=== PATIENT | male | born 1980 | race Caucasian/White ===

== ENCOUNTER 2018-10-05 09:19 | Observation (INO) | payer OTHER ==
[~2018-10-05] VITALS: Ht 210.8 cm; Wt 104.3 kg
[~2018-10-05 09:19] MED LIST: ALBU90OI61 INH; BUSP10 PO; CEPH500 PO; CLAR500 PO; CODACE30 PO; CRUTCH3 USE; Cyclobenzaprine5 MG PO; HYDACE5 PO; HYDACE5325 PO; HYDPAM25 PO; IBUP600 PO; IBUP800 PO; METR500 PO; NAPR500 PO; Norco 7.5-3251 EACH PO; OMEP20ER PO; SPACER IH; SULTRIDS PO
[2018-10-05 10:41] LABS: BASOPHILS ABSOLUTE AUTO 0.04 K/mm3 (0.00-0.23); BASOPHILS PERCENT AUTO 0 % (0-2); EOSINOPHILS PERCENT AUTO 1 % (0-6); Hematocrit 44.9 % (37.0-53.0); Hemoglobin 15.1 g/dL (13.5-17.5); IMMATURE GRAN ABSOLUTE AUTO 0.12 K/mm3 (0.00-0.10); IMMATURE GRAN PERCENT AUTO 1 % (0-1); LYMPHOCYTES ABSOLUTE AUTO 2.51 K/mm3 (0.84-5.20); LYMPHOCYTES PERCENT AUTO 14 % (21-46); MONOCYTES ABSOLUTE AUTO 1.89 K/mm3 (0.16-1.47); MONOCYTES PERCENT AUTO 11 % (4-13); Mean Corpuscular HGB 32.9 pg (26.0-34.0); Mean Corpuscular HGB Conc 33.6 g/dL (31.5-36.5); Mean Corpuscular Volume 98 fL (80-100); Mean Platelet Volume 9.4 fL (9.1-12.4); NEUTROPHILS ABSOLUTE AUTO 13.42 K/mm3 (1.96-9.15); NEUTROPHILS PERCENT AUTO 74 % (41-73); Platelet Count 265 K/mm3 (150-400); RDW Coefficient Variation 12.5 % (11.7-14.2); RDW Standard Deviation 45.1 fL (35.1-46.3); Red Blood Cell Count 4.59 M/mm3 (4.30-5.90); White Blood Cell Count 18.08 K/mm3 (4.00-11.30)
[2018-10-05 11:04] LABS: Alanine Aminotransfer (ALT/SGP 44 U/L (12-78); Albumin, Blood 3.7 g/dL (3.4-5.0); Albumin/Globulin Ratio 0.9 (0.8-1.8); Alk Phos 101 U/L (50-136); Anion Gap 6 mmol/L (6-16); Aspartate Aminotrans (AST/SGOT 21 U/L (12-37); Bilirubin, Total 0.5 mg/dL (0.1-1.0); Blood Urea Nitrogen 17 mg/dL (8-24); Bun/Creatinine Ratio 13.7 (12.0-20.0); CO2, Blood 26 mmol/L (21-32); Calcium, Blood 9.4 mg/dL (8.5-10.1); Chloride, Blood 109 mmol/L (98-108); Creatinine, Blood 1.24 mg/dL (0.60-1.20); Glomerular Filtration Rate >60 (60-); Glucose, Blood 99 mg/dL (70-99); Sodium, Blood 141 mmol/L (136-145); Total Protein, Blood 7.7 g/dL (6.4-8.2)
[2018-10-05] MEDS ORDERED: Tylenol325 MG PO (12:23)
[2018-10-05] MEDS ORDERED: ADVIL LIQUI-GE200 MG PO (12:24)
[2018-10-05] MEDS ORDERED: BENADRYL25 MG PO (12:24)
--- NOTE | 2018-10-05 22:09 | NUR ---
INCREASED DRAINAGE LARGE AMOUNT OF DRAINAGE NOTED UPON PT RETURNING FROM BATHROOM. DRAINAGE PURULENT FOUL YELLOW/SS. GOWN + LINENS CHANGED. PT REPORTED FEELING NAUSEATED UPON SEEING DRAINAGE. ZOFRAN ADMINISTERED + EMESIS BAG GIVEN. ABD PAD APPLIED TO COCCYX. THIS NURSE NOTIFED BY OR THAT PT WILL BE BROUGHT BACK TO OR SOON. PT MAINTAINED NPO. PT RELAXING IN BED NOW. CALL LIGHT IN REACH.
--- NOTE | 2018-10-05 23:00 | NUR ---
10/05/18 2300 Ignacia Gupta PT ON SCHEDULED ANTIBIOTICS
--- NOTE | 2018-10-06 00:52 | NUR ---
0010 PT BACK TO ROOM. TRANSFERED TO BED SBA. GAUZE TO COCCYX CHANGED WITH PREVENA DRAIN NOTED. PT DENIES PAIN, NAUSEA DECREASED POST MEDICATIONS. RESTING IN BED NOW. TOLERATING FLUIDS + SMALL BITES CRACKERS. PO ABX GIVEN. CALL LIGHT IN REACH.
--- NOTE | 2018-10-06 07:44 | NUR ---
SHIFT SUMMARY PT POD#1 BRIDGER RECTAL ABSCESS I+D WITH ALINE DRAIN PLACEMENT. AAOX4. DISCOMFORT AT TOLERABLE LEVEL POST OP. NO NAUSEA/EMESIS SINCE RETURNING TO FLOOR. LARGE AMOUNT SS DRAINAGE OUT OF SITE, GAUZE CHANGED X2 THIS AM WITH LINEN CHANGE X1. PT RESTED WELL THIS AM POST OP. INDEPENDENT IN ROOM. SL. TOLERATING PO FLUIDS WELL. PT RESTING AT TIME OF REPORT TO DAY SHIFT RN, QIAN WITH CALL LIGHT IN REACH.
[2018-10-06] MEDS ORDERED: Norco 5-325 Ta1 EACH PO (14:12)
[2018-10-06] MEDS ORDERED: METR500 PO (14:13)
--- NOTE | 2018-10-06 14:47 | NUR ---
DISCHARGE PT EDUCATED ON AND RECEIVED PRINTED DC INSTRUCTIONS AND VERB AN UNDERSTANDING. PT GIVEN HARD RX FOR NORCO AND ABX. IVS DC'D. GAUZE AND BRIDGER BOTTLE GIVEN TO PT. PT SHOWERING AT THIS TIME WHILE WAITING FOR RIDE HOME. PT GATHERED ALL PERSONAL BELONGINGS.
== END 2018-10-06 15:15 | disposition home or self-care (01) ==
LOC: ER 09:19 → SURS 09:20
PROVIDERS: Emergency Medicine; ADMIT Surgery
PROC: 0D9P0ZZ Drainage of Rectum, Open Approach (ICD-10-PCS; principal; 2018-10-05 22:00)
DX: K61.1 Rectal abscess (principal); F17.210 Nicotine dependence, cigarettes, uncomplicated; D72.829 Elevated white blood cell count, unspecified; E66.9 Obesity, unspecified; Z79.2 Long term (current) use of antibiotics; Z79.899 Other long term (current) drug therapy; Z88.0 Allergy status to penicillin; Z88.8 Allergy status to other drugs, medicaments and biological substances; Z68.23 Body mass index [BMI] 23.0-23.9, adult
CPT/HCPCS: 36415; 72193; 80053; 85025; 96361; 96365-59; 96375; 96375-59; 96376; 99284-25; A9270-GY; G0378; J0744; J1100; J1170; J1885; J2250; J2270; J2405; J2704; J3010; J7030; J7120; Q9967

== ENCOUNTER → 2019-10-13 | Outpatient (CLI) | payer OTHER ==
[~2019-10-13] MED LIST changes: +ADVIL LIQUI-GE200 MG PO; +BENADRYL25 MG PO; +Norco 5-325 Ta1 EACH PO; +Tylenol325 MG PO
[2019-10-13 17:45] LABS: BASOPHILS ABSOLUTE AUTO 0.09 K/mm3 (0.00-0.23); BASOPHILS PERCENT AUTO 1 % (0-2); EOSINOPHILS ABSOLUTE AUTO 0.07 K/mm3 (0.00-0.68); EOSINOPHILS PERCENT AUTO 1 % (0-6); Hematocrit 44.1 % (37.0-53.0); Hemoglobin 15.2 g/dL (13.5-17.5); IMMATURE GRAN ABSOLUTE AUTO 0.09 K/mm3 (0.00-0.10); IMMATURE GRAN PERCENT AUTO 1 % (0-1); LYMPHOCYTES ABSOLUTE AUTO 3.05 K/mm3 (0.84-5.20); LYMPHOCYTES PERCENT AUTO 21 % (21-46); MONOCYTES ABSOLUTE AUTO 1.46 K/mm3 (0.16-1.47); MONOCYTES PERCENT AUTO 10 % (4-13); Mean Corpuscular HGB Conc 34.5 g/dL (31.5-36.5); Mean Corpuscular Volume 96 fL (80-100); Mean Platelet Volume 9.4 fL (9.1-12.4); NEUTROPHILS ABSOLUTE AUTO 9.62 K/mm3 (1.96-9.15); NEUTROPHILS PERCENT AUTO 67 % (41-73); Platelet Count 328 K/mm3 (150-400); RDW Coefficient Variation 13.2 % (11.7-14.2); RDW Standard Deviation 46.6 fL (35.1-46.3); Red Blood Cell Count 4.61 M/mm3 (4.30-5.90); White Blood Cell Count 14.38 K/mm3 (4.00-11.30)
[2019-10-13 18:03] LABS: Albumin, Blood 4.2 g/dL (3.4-5.0); Bilirubin, Total 0.3 mg/dL (0.1-1.0); Bun/Creatinine Ratio 14.3 (12.0-20.0); Calcium, Blood 9.5 mg/dL (8.5-10.1); Creatinine, Blood 1.4 mg/dL (0.60-1.20); Globulin, Blood 4.2 g/dL (2.2-4.0); Potassium, Blood 3.9 mmol/L (3.5-5.5); Total Protein, Blood 8.4 g/dL (6.4-8.2)
== END ==
LOC: LAB SHORT 17:38 → LAB EV 17:38
PROVIDERS: Nurse Practitioner
DX: R00.0 Tachycardia, unspecified (principal); L02.92 Furuncle, unspecified
CPT/HCPCS: 80053; 85025; 87070; 87075; 87147; 87205

== ENCOUNTER 2023-01-11 02:33 | Emergency (ER) | payer OTHER ==
[~2023-01-11] VITALS: Ht 180.3 cm; Wt 111.6 kg
[~2023-01-11 02:33] MED LIST changes: +Cleocin HCl150 MG PO
[2023-01-11] MEDS ORDERED: CYCL10 PO (03:19)
[2023-01-11 03:29] VITALS: BP 178/128
== END 2023-01-11 03:40 | disposition home or self-care (01) ==
LOC: ER 02:33
DX: M25.511 Pain in right shoulder (principal); M54.32 Sciatica, left side; I10 Essential (primary) hypertension; F17.220 Nicotine dependence, chewing tobacco, uncomplicated; F17.290 Nicotine dependence, other tobacco product, uncomplicated
CPT/HCPCS: 73030; 99283-25; A9270; J1100

== ENCOUNTER 2024-02-09 19:40 | Inpatient (IN) | payer OTHER ==
[~2024-02-09] VITALS: Ht 180.3 cm; Wt 91.9 kg
[~2024-02-09 19:40] MED LIST changes: +CYCL10 PO
[2024-02-09 20:17] LABS: BASOPHILS PERCENT AUTO 1 % (0-2); EOSINOPHILS ABSOLUTE AUTO 0.16 K/mm3 (0.00-0.68); EOSINOPHILS PERCENT AUTO 1 % (0-6); Hemoglobin 14.3 g/dL (13.5-17.5); IMMATURE GRAN ABSOLUTE AUTO 0.25 K/mm3 (0.00-0.10); IMMATURE GRAN PERCENT AUTO 1 % (0-1); LYMPHOCYTES ABSOLUTE AUTO 1.91 K/mm3 (0.84-5.20); LYMPHOCYTES PERCENT AUTO 9 % (21-46); MONOCYTES ABSOLUTE AUTO 2.34 K/mm3 (0.16-1.47); MONOCYTES PERCENT AUTO 12 % (4-13); Mean Corpuscular HGB 31.6 pg (26.0-34.0); Mean Corpuscular HGB Conc 33.3 g/dL (31.5-36.5); Mean Corpuscular Volume 95 fL (80-100); Mean Platelet Volume 9.1 fL (9.1-12.4); NEUTROPHILS ABSOLUTE AUTO 15.59 K/mm3 (1.96-9.15); NEUTROPHILS PERCENT AUTO 77 % (41-73); Platelet Count 318 K/mm3 (150-400); RDW Coefficient Variation 13.5 % (11.7-14.2); RDW Standard Deviation 48.1 fL (35.1-46.3); Red Blood Cell Count 4.53 M/mm3 (4.30-5.90); White Blood Cell Count 20.35 K/mm3 (4.00-11.30)
[2024-02-09 20:40] LABS: Albumin, Blood 2.6 g/dL (3.4-5.0); Albumin/Globulin Ratio 0.5 (0.8-1.8); Bilirubin, Total 0.3 mg/dL (0.1-1.0); Bun/Creatinine Ratio 16.2 (12.0-20.0); C-REACTIVE PROTEIN, EXT RANGE 14.6 mg/dL (0.000-0.300); Creatinine, Blood 0.93 mg/dL (0.60-1.20); Globulin, Blood 5.2 g/dL (2.2-4.0); Potassium, Blood 4.4 mmol/L (3.5-5.5); Total Protein, Blood 7.8 g/dL (6.4-8.2)
[2024-02-09] MEDS ORDERED: Vancomycin HCL 1,500 MG in NS 250 ML IV ONE (23:25)
[2024-02-09] MEDS ORDERED: NS 1,000 ML IV SCH (23:25)
[2024-02-09] MEDS ORDERED: Cefepime HCl 2,000 MG in NS 100 ML IV ONE (23:30)
[2024-02-09] MEDS ORDERED: Vancomycin HCL 2,000 MG in NS 520 ML IV ONE (23:30)
[2024-02-10] VITALS (24 sets, daily range): BP systolic 106–143; BP diastolic 75–111
[2024-02-10] MEDS ORDERED: Ketorolac Tromethamine 30mg Vial IV ONE (00:15)
[2024-02-10] MEDS ORDERED: FLU VACC TS2024-25(6MOS UP)/PF 45 MCG/0.5 ML SYRINGE IM SCH ×2 (03:15→19:15)
[2024-02-10] MEDS ORDERED: Acetaminophen 325 MG TABLET PO PRN ×2 (03:20→19:20)
[2024-02-10] MEDS ORDERED: NS 1,000 ML IV SCH ×2 (03:25→04:00)
[2024-02-10] MEDS ORDERED: ChlordiazePOXIDE 25 MG Cap PO PRN ×2 (03:40)
[2024-02-10] MEDS ORDERED: LORazepam 2 MG/ML 1ML Injection IV PRN ×2 (03:40)
[2024-02-10 04:18] LABS: BASOPHILS ABSOLUTE AUTO 0.12 K/mm3 (0.00-0.23); BASOPHILS PERCENT AUTO 1 % (0-2); EOSINOPHILS ABSOLUTE AUTO 0.13 K/mm3 (0.00-0.68); EOSINOPHILS PERCENT AUTO 1 % (0-6); Hematocrit 38.4 % (37.0-53.0); Hemoglobin 12.7 g/dL (13.5-17.5); IMMATURE GRAN ABSOLUTE AUTO 0.46 K/mm3 (0.00-0.10); IMMATURE GRAN PERCENT AUTO 2 % (0-1); LYMPHOCYTES PERCENT AUTO 9 % (21-46); MONOCYTES ABSOLUTE AUTO 2.37 K/mm3 (0.16-1.47); MONOCYTES PERCENT AUTO 12 % (4-13); Mean Corpuscular HGB 32.1 pg (26.0-34.0); Mean Corpuscular HGB Conc 33.1 g/dL (31.5-36.5); Mean Corpuscular Volume 97 fL (80-100); Mean Platelet Volume 9.6 fL (9.1-12.4); NEUTROPHILS ABSOLUTE AUTO 15.55 K/mm3 (1.96-9.15); NEUTROPHILS PERCENT AUTO 76 % (41-73); Platelet Count 274 K/mm3 (150-400); RDW Coefficient Variation 13.6 % (11.7-14.2); RDW Standard Deviation 49.1 fL (35.1-46.3); Red Blood Cell Count 3.96 M/mm3 (4.30-5.90); White Blood Cell Count 20.43 K/mm3 (4.00-11.30)
[2024-02-10 04:46] LABS: Albumin, Blood 2.2 g/dL (3.4-5.0); Albumin/Globulin Ratio 0.5 (0.8-1.8); Bilirubin, Total 0.5 mg/dL (0.1-1.0); Bun/Creatinine Ratio 14.6 (12.0-20.0); Calcium, Blood 8.7 mg/dL (8.5-10.1); Creatinine, Blood 1.03 mg/dL (0.60-1.20); Globulin, Blood 4.3 g/dL (2.2-4.0); Potassium, Blood 4.3 mmol/L (3.5-5.5); Total Protein, Blood 6.5 g/dL (6.4-8.2)
--- NOTE | 2024-02-10 06:38 | NUR ---
NEW ADMIT/SHIFT SUMMARY. PATIENT ARRIVED TO ROOM 351 WITH 1P TRANSFER VIA GURNEY. PATIENT ABLE TO HOP FROM [facility] TO HOSPITAL BED. PATIENT ARRIVED TO ROOM WITH 2 PERSONAL BELONGINGS BAGS AND A BLACK DUFFLE BAG. PATIENT ORIENTED TO ROOM. PATIENT IS A&OX4. PATIENT IS PLEASANT AND COOPERATIVE WITH CARE. PATIENT IS TO HAVE A CONSULT WITH SURGICAL TODAY FOR CELLULITIS AND ABCESS TO LEFT KNEE. PATIENT IS NPO. BED IS LOCKED IN THE LOWEST POSITION.
--- NOTE | 2024-02-10 08:04 | NUR ---
DR. LUCAS IS NOT RESTAURANT SUPERVISOR TODAY. NOTIFIED DR. MODI. ALSO REPORTED PT HAS NICOTINE PRODUCTS AND VAPE PEN AND IS REQUESTING A NICOTINE PATCH. DR. MODI REQUESTED TO PLACE ORDER FOR NICOTINE PATCH 21 MG PER DAY. PLACED ORDER. PT DUFFEL BAG CONTAINING NICOTINE PRODUCTS WAS LOCKED IN CLOSET IN THE ROOM.
[2024-02-10] MEDS ORDERED: Nicotine 21 MG PATCH TOP SCH (09:00)
[2024-02-10] MEDS ORDERED: Folic Acid 1 MG TAB PO SCH (09:00)
[2024-02-10] MEDS ORDERED: Lactobacil 2-S.Thermo-Bifido 1 1 Cap PO SCH (09:00)
[2024-02-10] MEDS ORDERED: Thiamine HCl 100 MG Tab PO SCH (09:00)
[2024-02-10] MEDS ORDERED: Cefepime HCl 2,000 MG in NS 100 ML IV SCH (10:00)
[2024-02-10 15:12] LABS: U Amphetamine Screen DETECTED; U Barbituate Screen Not Detected; U Benzodiazapine Screen Not Detected; U Buprenorphine Screen Not Detected; U Cannabinoids Screen DETECTED; U Cocaine Screen Not Detected; U Methadone Screen Not Detected; U Methamphetamine Screen DETECTED; U Opiates Screen Not Detected; U Oxycodone Screen Not Detected; U Phencyclidine Screen Not Detected
[2024-02-10] MEDS ORDERED: Lactated Ringer's 1,000 ML IV SCH (16:10)
[2024-02-10] MEDS ORDERED: HydrALAZINE HCl 20 MG / ML 1ML Vial ONE (16:37)
[2024-02-10] MEDS ORDERED: FentaNYL Citrate 50 MCG/ML 2 ML Injection ONE ×3 (16:38→18:53)
[2024-02-10] MEDS ORDERED: Dexamethasone Sod Phos 10 MG/ML 1ML VIAL ONE (16:38)
[2024-02-10] MEDS ORDERED: propofoL 20 ML IV ONE (16:38)
[2024-02-10] MEDS ORDERED: Ondansetron HCl 2 MG / ML 2ML Vial ONE (16:38)
[2024-02-10] MEDS ORDERED: Lidocaine HCl 2% 20 ML MDV ONE (16:38)
[2024-02-10] MEDS ORDERED: Vancomycin HCL 1,750 MG in NS 500 ML IV SCH (17:00)
--- NOTE | 2024-02-10 17:13 | NUR ---
PT HAS 18G IV TO LEFT UPPER ARM THAT FLUSHES WELL AND FLOWS TO GRAVITY.
--- NOTE | 2024-02-10 17:30 | NUR ---
PT RECENTLY HERE FROM [facility] BY [facility] WITH OTHER STAFF. Patient confirms NPO status and agrees with scheduled surgery. Pre-Op teaching done. Pt verbalizes understanding. Lungs clear T/O to Auscultation. History, Chart, Medications and Allergies reviewed before start of procedure.
--- NOTE | 2024-02-10 17:34 | NUR ---
SHIFT SUMMARY PT A&OX4. PT ADMITTED DUE TO SEPSIS DUE TO CELLULITIS OF L LEG. PT REPORTS PAIN ON L LEG, PT PAIN MANAGED PER EMAR. PT ON ROOM AIR. PT USES WALKER, AND IS INDEPENDENT IN ROOM. FALL PERCAUTIONS IN PLACE. PT WAS NPO THROUGH SHIFT. PT RECEIVED IV FLUIDS AND ANTIBIOTICS THROUGH SHIFT FOR SEPSIS PROTOCOL. PT SHOWERED THIS AM. PT CALLS APPROPRIATELY. PT HAS ITEMS LOCKED UP IN CLOSET. PT CURRENTLY IN OR. PT ON ROOM AIR THROUGH SHIFT. VITAL SIGNS STABLE, HR WAS TACHY THROUGH SHIFT. NO SIGNS OF WITHDRAWL THROUGH SHIFT.
[2024-02-10] MEDS ORDERED: HYDROmorphone HCl/Pf 1MG SYR ONE ×2 (17:58→18:47)
[2024-02-10] MEDS ORDERED: Bisacodyl 10 MG Supp PR PRN (19:10)
[2024-02-10] MEDS ORDERED: OxyCODONE HCL 5 MG TAB PO PRN (19:10)
[2024-02-10] MEDS ORDERED: NS KCl 20mEq 1,000 ML IV SCH (19:10)
[2024-02-10] MEDS ORDERED: Magnesium Hydroxide Conc 10 ML UDC PO PRN (19:15)
[2024-02-10] MEDS ORDERED: Metoclopramide HCl 10 MG Tab PO PRN (19:15)
[2024-02-10] MEDS ORDERED: HYDROmorphone HCl/Pf 1MG SYR IV PRN (19:15)
[2024-02-10] MEDS ORDERED: Ondansetron HCl 2 MG / ML 2ML Vial IV PRN (19:20)
[2024-02-10] MEDS ORDERED: Ondansetron 4 MG TAB PO PRN (19:20)
[2024-02-10] MEDS ORDERED: Naloxone HCl 0.4MG / ML 1ML Vial IV PRN (19:20)
--- NOTE | 2024-02-10 19:30 | NUR ---
RETURNED FROM SURGERY. PATIENT BACK TO ROOM AT 1930 FROM PACU. PATIENT IS DROWSY. PATIENT TRANSFERED FROM [facility] TO [facility] BED WITH SLIDE SHEET AND 5 PERSON TRANSFER D/T PATIENT BEING DROWSY AND SUPPORT FOR PATIENTS LEG. PATIENT DENIES PAIN AT THIS TIME. POST OP-VITALS STARTED.
--- NOTE | 2024-02-10 19:55 | NUR ---
SOLAR DESIGNER NUMBER FOR CALLED AND LEFT A MESSAGE IN REGARDS TO NEW ORDERS FOR PRE-OP AND POST-OP SURGICAL PROCEDURE. PATIENT HAS UNDERGONE SURGERY AND IS BACK TO ROOM PRIOR TO NEW ORDERS BEING PLACED-CALLING FOR CLARIFICATION. SOLAR DESIGNER LINE RIDER TO GET MESSAGE OVER TO , PHONE NUMBER TO MEDICAL FLOOR LEFT FOR RETURN CALL.
[2024-02-10] MEDS ORDERED: Ketorolac Tromethamine 30mg Vial IV PRN (20:50)
[2024-02-10] MEDS ORDERED: Naproxen 500 MG Tab PO PRN (20:50)
[2024-02-10] MEDS ORDERED: Docusate Sodium 100 MG Cap PO SCH (21:00)
[2024-02-11 02:33] VITALS: BP 155/130
[2024-02-11 02:41] VITALS: BP 140/95
--- NOTE | 2024-02-11 04:48 | NUR ---
SHIFT SUMMARY. PATIENT IS A&OX4. PATIENT CALLS APPROPRIATELY AND IS ABLE TO MAKE NEEDS KNOWN. PATIENT C/O PAIN X1-MEDICATED PER ORDERS. PATIENT HAD I&D DONE TO LEFT KNEE 02/10/24 AND WOUND VAC PLACED WITH DA BANDAGE IN PLACE; AREA IS C/D/I. BED IS LOCKED IN THE LOWEST POSITION WITH CALL LIGHT IN REACH.
[2024-02-11 05:35] VITALS: BP 139/101
[2024-02-11 07:27] VITALS: BP 128/99
[2024-02-11 08:38] LABS: BASOPHILS ABSOLUTE AUTO 0.05 K/mm3 (0.00-0.23); BASOPHILS PERCENT AUTO 0 % (0-2); EOSINOPHILS ABSOLUTE AUTO 0.03 K/mm3 (0.00-0.68); EOSINOPHILS PERCENT AUTO 0 % (0-6); Hematocrit 36.7 % (37.0-53.0); Hemoglobin 12.1 g/dL (13.5-17.5); IMMATURE GRAN ABSOLUTE AUTO 0.29 K/mm3 (0.00-0.10); IMMATURE GRAN PERCENT AUTO 2 % (0-1); LYMPHOCYTES ABSOLUTE AUTO 1.47 K/mm3 (0.84-5.20); LYMPHOCYTES PERCENT AUTO 9 % (21-46); MONOCYTES ABSOLUTE AUTO 1.19 K/mm3 (0.16-1.47); MONOCYTES PERCENT AUTO 7 % (4-13); Mean Corpuscular HGB 31.9 pg (26.0-34.0); Mean Corpuscular Volume 97 fL (80-100); Mean Platelet Volume 9.6 fL (9.1-12.4); NEUTROPHILS ABSOLUTE AUTO 14.13 K/mm3 (1.96-9.15); NEUTROPHILS PERCENT AUTO 82 % (41-73); Platelet Count 318 K/mm3 (150-400); RDW Coefficient Variation 13.7 % (11.7-14.2); RDW Standard Deviation 49.3 fL (35.1-46.3); Red Blood Cell Count 3.79 M/mm3 (4.30-5.90); White Blood Cell Count 17.16 K/mm3 (4.00-11.30)
[2024-02-11 08:46] LABS: C-REACTIVE PROTEIN, EXT RANGE 15.2 mg/dL (0.000-0.300); Magnesium, Blood 2.2 mg/dL (1.6-2.4)
[2024-02-11 08:49] LABS: Albumin, Blood 2.2 g/dL (3.4-5.0); Albumin/Globulin Ratio 0.5 (0.8-1.8); Bilirubin, Total 0.2 mg/dL (0.1-1.0); Bun/Creatinine Ratio 16.1 (12.0-20.0); Calcium, Blood 8.7 mg/dL (8.5-10.1); Creatinine, Blood 0.93 mg/dL (0.60-1.20); Globulin, Blood 4.5 g/dL (2.2-4.0); Potassium, Blood 4.5 mmol/L (3.5-5.5); Total Protein, Blood 6.7 g/dL (6.4-8.2)
[2024-02-11] MEDS ORDERED: Enoxaparin 40 MG/0.4 ML SYR SC SCH (09:00)
[2024-02-11] MEDS ORDERED: NS 250 ML IV PRN (09:25)
[2024-02-11] MEDS ORDERED: CeFAZolin Sodium 2,000 MG in NS 100 ML IV SCH (16:00)
[2024-02-11 16:05] VITALS: BP 137/99
--- NOTE | 2024-02-11 16:09 | NUR ---
PT REPORTEDHE WAS HAVING A NIGHT TERROR AND WOKE UP CHOKING ON SALIVA. PT STATED HE ALSO KICKED HIS BEDSIDE TABLE WITH LEFT LEG WHEN HE WOKE WITH A STARTLE. PT IS CRYING, REPORTS 10/10 PAIN. PT IS NO LONGER CHOKING. LS CLEAR. BP 137/99. PRN IV DILAUDID 0.5 MG GIVEN AND NAPROXEN. PT CONTINUES TO REPORT 9/10 PAIN. WILL GIVE IV TORADOL.
[2024-02-11 16:41] LABS: Vancomycin, Trough 12.8 ug/mL (5.0-10.0)
[2024-02-11] MEDS ORDERED: Dose Adjust by Pharmacy XX STA (16:44)
--- NOTE | 2024-02-11 19:33 | NUR ---
SHIFT SUMMARY PT A&0X4. PT ADMITTED DUE TO L LEG CELLULITIS. PT REPORTS PAIN, PAIN MANAGED PER EMAR. LEG IS ELEVATED. SOME EDEMA NOTED ON LEG. WOUND VAC SEALED, ON CONTINUOUS SUCTION. MINIMAL AMOUNT OF SANGUINOUS FLUID. PT ATE ADEQUATELY. PT VOIDS USING URINAL. CIWA IS 0-1, HAD SWEATS, COULD BE DUE TO PAIN. PT CALLS APPROPRIATELY AND IS PLEASANT. CALL LIGHT IN REACH. VSS. PT ON CONT. PULSE OX, SATS ARE 95%.
[2024-02-11 20:18] VITALS: BP 122/84
[2024-02-12] VITALS (22 sets, daily range): BP systolic 123–154; BP diastolic 95–125
--- NOTE | 2024-02-12 06:49 | NUR ---
SHIFT SUMMARY. PATIENT IS A&OX4. PATIENT CALLS APPROPRIATELY AND IS ABLE TO MAKE HIS NEEDS KNOWN. PATIENT HAS WOUND VAC TO LEFT KNEE. PATIENT HAD I&D ON 02/10/24. PATIENT C/O PAIN X1 THIS SHIFT; MEDICATED WITH ORDERED TYLENOL-SEE EMAR. PATIENT RESTING WELL T/O NIGHT. PATIENT NPO SINCE MIDNIGHT FOR POSSIBLE I&D TO LEFT KNEE TODAY OR WEDNESDAY. BED IS LOCKED IN THE LOWEST POSITION WITH CALL LIGHT IN REACH.
[2024-02-12 07:13] LABS: Hematocrit 34.2 % (37.0-53.0); Hemoglobin 11.3 g/dL (13.5-17.5); Mean Corpuscular HGB 32.5 pg (26.0-34.0); Mean Corpuscular Volume 98 fL (80-100); Mean Platelet Volume 9.3 fL (9.1-12.4); Platelet Count 356 K/mm3 (150-400); RDW Coefficient Variation 13.9 % (11.7-14.2); RDW Standard Deviation 50.1 fL (35.1-46.3); Red Blood Cell Count 3.48 M/mm3 (4.30-5.90); White Blood Cell Count 10.57 K/mm3 (4.00-11.30)
[2024-02-12 07:37] LABS: Albumin, Blood 2.2 g/dL (3.4-5.0); Albumin/Globulin Ratio 0.6 (0.8-1.8); Bilirubin, Total 0.2 mg/dL (0.1-1.0); Bun/Creatinine Ratio 17.8 (12.0-20.0); Calcium, Blood 9.1 mg/dL (8.5-10.1); Creatinine, Blood 0.9 mg/dL (0.60-1.20); Potassium, Blood 4.3 mmol/L (3.5-5.5); Total Protein, Blood 6.2 g/dL (6.4-8.2)
[2024-02-12 08:02] LABS: BAND PERCENT MAN 1 % (0-8); BASOPHILS ABSOLUTE MAN 0.21 K/mm3 (0.00-0.23); BASOPHILS PERCENT MAN 2 % (0-2); EOSINOPHILS ABSOLUTE MAN 0.21 K/mm3 (0.00-0.68); EOSINOPHILS PERCENT MAN 2 % (0-6); LYMPHOCYTES ABSOLUTE MAN 2.43 K/mm3 (0.84-5.20); LYMPHOCYTES PERCENT MAN 23 % (21-46); MONOCYTES ABSOLUTE MAN 0.52 K/mm3 (0.16-1.47); MONOCYTES PERCENT MAN 5 % (4-13); NEUTROPHILS ABSOLUTE MAN 6.97 K/mm3 (1.96-9.15); PLASMA CELL ABSOLUTE MAN 0.21 K/mm3 (0.00-0.00); PLASMA CELLS PERCENT MAN 2 % (0-0); SEG NEUTROPHILS PERCENT MAN 65 % (41-73); TOTAL CELLS COUNTED 100
--- NOTE | 2024-02-12 13:35 | NUR ---
NOTE: PATIENT LEFT THE ROOM AT THIS TIME, TRANSPORTED VIA BED TO DAY SURGERY FOR I/D TO L KNEE.
[2024-02-12] MEDS ORDERED: Lactated Ringer's 1,000 ML IV ONE (13:36)
--- NOTE | 2024-02-12 14:00 | NUR ---
PT ARRIVES TO PACU VIA BED FROM RM 351 VIA BED AT 1345. PLEASANT & COOPERATIVE. AFEBRILE/HYPERTENSIVE 146/111. DENIES PAIN/NAUSEA. SURGICAL PACK COMPLETE. SURGICAL HAT/PAS SLEEVE TO RLE/BP CUFF IN PLACE. LR AT TKO. NO COMPLAINTS AT THIS TIMES. APPEARS COMFORTABLE & RELAXED.
[2024-02-12] MEDS ORDERED: Acetaminophen 325 MG TABLET PO PRN (14:40)
[2024-02-12] MEDS ORDERED: Ondansetron HCl 2 MG / ML 2ML Vial IV PRN (14:40)
[2024-02-12] MEDS ORDERED: Magnesium Hydroxide Conc 10 ML UDC PO PRN (14:45)
[2024-02-12] MEDS ORDERED: Ondansetron 4 MG TAB PO PRN (14:45)
[2024-02-12] MEDS ORDERED: FLU VACC TS2024-25(6MOS UP)/PF 45 MCG/0.5 ML SYRINGE IM ONE (14:45)
[2024-02-12] MEDS ORDERED: Bisacodyl 10 MG Supp PR PRN (14:45)
[2024-02-12] MEDS ORDERED: Metoclopramide HCl 10 MG Tab PO PRN (14:45)
[2024-02-12] MEDS ORDERED: Naloxone HCl 0.4MG / ML 1ML Vial IV PRN (14:45)
[2024-02-12] MEDS ORDERED: NS KCl 20mEq 1,000 ML IV SCH (14:45)
[2024-02-12] MEDS ORDERED: FentaNYL Citrate 50 MCG/ML 2 ML Injection ONE ×2 (15:04→16:05)
[2024-02-12] MEDS ORDERED: Midazolam HCl 1MG / ML 2ML Vial ONE (15:05)
[2024-02-12] MEDS ORDERED: propofoL 20 ML IV ONE (15:23)
[2024-02-12] MEDS ORDERED: propofoL 40 ML IV ONE (15:31)
[2024-02-12] MEDS ORDERED: Dexamethasone Sod Phos 10 MG/ML 1ML VIAL ONE (15:35)
[2024-02-12] MEDS ORDERED: Ketorolac Tromethamine 30mg Vial ONE (15:35)
[2024-02-12] MEDS ORDERED: Ondansetron HCl 2 MG / ML 2ML Vial ONE (15:35)
[2024-02-12] MEDS ORDERED: HydrALAZINE HCl 20 MG / ML 1ML Vial ONE (16:05)
[2024-02-12] MEDS ORDERED: HYDROmorphone HCl/Pf 1MG SYR ONE ×2 (16:10→16:34)
[2024-02-12] MEDS ORDERED: Vancomycin HCL 1,750 MG in NS 500 ML IV SCH (17:00)
--- NOTE | 2024-02-12 17:45 | NUR ---
SHIFT SUMMARY: PATIENT A/OX4, PLEASANT AND COOPERATIVE c CARE. PATIENT NPO SINCE PR FOR POSSIBLE REPEAT I/D THIS PM. PATIENT HAD REPEAT I/D TO L KNEE c A NEW WOUND VAC PLACED BY DR. PADILLA. PATIENT BACK FROM PROCEDURE AT AROUND 1710, RECEIVED BEDSIDE REPORTS FROM DAVY FLYNN. POST-OP VITALS TAKEN. PATIENT SENSATIONS INTACT TO AFFECTED SITE AND REPORTS CHRONIC N/T TO BLE'S. WOUND VAC TO L KNEE HAS SCANT DRAINAIGE TO TUBING, ICE PACK IN PLACED AND ELEVATED ON PILLOWS. PATIENT RECEIVED IV ABX/SCHEDULED MEDS PER EMAR. PATIENT ON REGULAR DIET STARTED AT DINNER, CONTINENT OF BLADDER, USES URINAL IN BED INDEPENDENTLY T/O SHIFT. CALL LIGHT IN REACH.
[2024-02-12] MEDS ORDERED: Docusate Sodium 100 MG Cap PO SCH (21:00)
[2024-02-13 01:38] VITALS: BP 118/93
--- NOTE | 2024-02-13 05:03 | NUR ---
SHIFT SUMMARY: PT IS A 43 YO FULL CODE MALE WHO LIKES TO BE CALLED "[place]" HE WAS ADMITTED FOR SEPSIS/CELLULITIS OF THE L KNEE. PT HAD AN I&D TODAY TO THE KNEE WITH A WOUND VAN ATTACHED. PT IS CURRENTLY HOMELESS AND LIVES IN A [place]. PT WAS POS FOR METH,CANNABIS AND ETOH. PT USES URINAL AT BEDSIDE AND IND IN ROOM. PT TAKES PAIN MEDICATION IT BECOMES DUE/AVALABLE. PT HAS HAD A LARGE APPETITE TONIGHT AND HAS BEEN VERY KIND TO STAFF. PT EXPRESSES HAVING A HIST OF NIGHT TERRORS. PT HAS CALL LIGHT IN REACH AND CALLS APPROPRIATELY.
[2024-02-13 05:09] LABS: BASOPHILS ABSOLUTE AUTO 0.07 K/mm3 (0.00-0.23); BASOPHILS PERCENT AUTO 1 % (0-2); EOSINOPHILS ABSOLUTE AUTO 0.02 K/mm3 (0.00-0.68); EOSINOPHILS PERCENT AUTO 0 % (0-6); Hematocrit 36.5 % (37.0-53.0); Hemoglobin 12.3 g/dL (13.5-17.5); IMMATURE GRAN ABSOLUTE AUTO 0.42 K/mm3 (0.00-0.10); IMMATURE GRAN PERCENT AUTO 3 % (0-1); LYMPHOCYTES ABSOLUTE AUTO 2.16 K/mm3 (0.84-5.20); LYMPHOCYTES PERCENT AUTO 16 % (21-46); MONOCYTES ABSOLUTE AUTO 0.78 K/mm3 (0.16-1.47); MONOCYTES PERCENT AUTO 6 % (4-13); Mean Corpuscular HGB 32.4 pg (26.0-34.0); Mean Corpuscular HGB Conc 33.7 g/dL (31.5-36.5); Mean Corpuscular Volume 96 fL (80-100); NEUTROPHILS ABSOLUTE AUTO 10.05 K/mm3 (1.96-9.15); NEUTROPHILS PERCENT AUTO 75 % (41-73); Platelet Count 432 K/mm3 (150-400); RDW Coefficient Variation 13.3 % (11.7-14.2); RDW Standard Deviation 47.4 fL (35.1-46.3)
[2024-02-13 05:38] LABS: C-REACTIVE PROTEIN, EXT RANGE 3.59 mg/dL (0.000-0.300)
[2024-02-13 05:39] LABS: Albumin, Blood 2.3 g/dL (3.4-5.0); Albumin/Globulin Ratio 0.6 (0.8-1.8); Bilirubin, Total 0.2 mg/dL (0.1-1.0); Bun/Creatinine Ratio 20.1 (12.0-20.0); Calcium, Blood 8.8 mg/dL (8.5-10.1); Creatinine, Blood 0.84 mg/dL (0.60-1.20); Globulin, Blood 4.1 g/dL (2.2-4.0); Potassium, Blood 4.6 mmol/L (3.5-5.5); Total Protein, Blood 6.4 g/dL (6.4-8.2)
[2024-02-13 07:14] VITALS: BP 146/97
[2024-02-13] MEDS ORDERED: Enoxaparin 40 MG/0.4 ML SYR SC SCH (09:00)
[2024-02-13] MEDS ORDERED: OxyCODONE 5 mg/Acetamin 325 mg TABLET PO PRN (10:55)
[2024-02-13 14:48] VITALS: BP 138/104
[2024-02-13 16:22] LABS: Vancomycin, Trough 19.6 ug/mL (5.0-10.0)
--- NOTE | 2024-02-13 18:32 | NUR ---
SHIFT SUMMARY PT A&OX4 AND ANSWERS QUESTIONS APPROPRIATELY. PT SEEN TODAY BY ORTHODONIST, CLEARED FROM NEEDING MORE PROCEDURES. WILL BRING CASE MANAGEMENT INTO PLAN OF CARE TO HELP PT WITH POSTOP CARE OUTSIDE OF HOSPITAL. VSS, NO COMPLAINTS OF CP/PRESSURE OR SOB. PT RECEIVED ALL SCHEDULED AND PRN MEDICATIONS. NO ACUTE EVENT AT THIS TIME. PT LEFT IN A POSITION OF SAFETY WITH FALL PRECAUTIONS IN PLACE AND CALL LIGHT IN REACH.
[2024-02-13 19:48] VITALS: BP 144/106
[2024-02-14] VITALS (7 sets, daily range): BP systolic 143–160; BP diastolic 94–118
--- NOTE | 2024-02-14 04:42 | NUR ---
PHYSICIAN ALLERGIST IMMUNOLOGIST SUMMARY PT A&OX4; ABLE TO MAKE NEEDS KNOWN TO STAFF AND USE CALL LIGHT APPROPRIATELY. PT C/O PAIN X1 THIS SHIFT AND RECEIVED ROXICODONE PRN; EFFECTIVE. PT HAS BEEN RESTING COMFORTABLY AFTER PRN PAIN MEDICATION. WOUND VAC CONTINUES TO WOUND ON L KNEE. NO ADVERSE SIDE EFFECTS TO IV ABX NOTED. CALL LIGHT IN REACH; BED IN LOW POSITION. NO ACUTE EVENTS.
[2024-02-14 05:57] LABS: Hematocrit 37.1 % (37.0-53.0); Hemoglobin 12.4 g/dL (13.5-17.5); Mean Corpuscular HGB 32.1 pg (26.0-34.0); Mean Corpuscular HGB Conc 33.4 g/dL (31.5-36.5); Mean Corpuscular Volume 96 fL (80-100); Mean Platelet Volume 8.7 fL (9.1-12.4); Platelet Count 464 K/mm3 (150-400); RDW Coefficient Variation 13.3 % (11.7-14.2); RDW Standard Deviation 47.2 fL (35.1-46.3); Red Blood Cell Count 3.86 M/mm3 (4.30-5.90); White Blood Cell Count 11.94 K/mm3 (4.00-11.30)
[2024-02-14 06:25] LABS: Albumin, Blood 2.5 g/dL (3.4-5.0); Albumin/Globulin Ratio 0.6 (0.8-1.8); Bilirubin, Total 0.3 mg/dL (0.1-1.0); Calcium, Blood 9.2 mg/dL (8.5-10.1); Creatinine, Blood 0.85 mg/dL (0.60-1.20); Globulin, Blood 4.2 g/dL (2.2-4.0); Potassium, Blood 4.3 mmol/L (3.5-5.5); Total Protein, Blood 6.7 g/dL (6.4-8.2)
[2024-02-14 06:44] LABS: BASOPHILS PERCENT MAN 0 % (0-2); EOSINOPHILS ABSOLUTE MAN 0.11 K/mm3 (0.00-0.68); EOSINOPHILS PERCENT MAN 1 % (0-6); LYMPHOCYTES ABSOLUTE MAN 3.46 K/mm3 (0.84-5.20); LYMPHOCYTES PERCENT MAN 29 % (21-46); METAMYELOCYTE ABSOLUTE MAN 0.23 K/mm3 (0.00-0.00); METAMYELOCYTE PERCENT MAN 2 % (0-0); MONOCYTES ABSOLUTE MAN 0.95 K/mm3 (0.16-1.47); MONOCYTES PERCENT MAN 8 % (4-13); MYELOCYTE ABSOLUTE MAN 0.23 K/mm3 (0.00-0.00); MYELOCYTE PERCENT MAN 2 % (0-0); NEUTROPHILS ABSOLUTE MAN 6.92 K/mm3 (1.96-9.15); SEG NEUTROPHILS PERCENT MAN 58 % (41-73); TOTAL CELLS COUNTED 100
[2024-02-14 10:33] LABS: HIV 1,2 COMBO ANTIGEN/ANTIBODY Negative (Negative)
--- NOTE | 2024-02-14 13:36 | NUR ---
THIS NURSE REACHED OUT TO DR PADILLA AND LEFT MESSAGE FOR RETURN CALL REGARDING WOUND VAC. PATIENT IS UANBLE TO DISCHARG TO [facility] AND IS CURRNTLY UNHOUSED. PATIENT WILL HAVE NO PLACE TO PLUG IN OR CARE FOR WOUND VAC. PENDING CALL FROM SURGEON.
--- NOTE | 2024-02-14 14:09 | NUR ---
DISCUSSED WITH PATIENT HIS PLAN FOR POST DISCHARGE RE. IF HE WII BE ABLE TO TEMPORARILY STAY WITH FRIENDS OR FAMILY AND WHAT HIS PLANS ARE TO BE SEEN IN [place] 3 TIMES PER WEEK FOR WOUND CARE. PT TELLS ME E MAY BE ABLE TO STAY TEMPORARILY WITH HIS SISTER BUT THAT HE HASNT TALKED TO HER YET.DISCUSSED WITH PATIENT THAT HE SHOULD SPEAK WITH HIS SISTER TODAY TO FORMULATE A DISCHARGE PLAN
--- NOTE | 2024-02-14 14:33 | NUR ---
THIS NURSE DISCUSSED WITH PATIENT DISCHARGE PLAN. PATIENT STATED THAT HE HAS FAMILY IN [facility] THAT HE PLANNED TO CONTACT TO SEE IF HE CAN STAY WITH THEM HOWEVER THEN CHANGED HIS MINE. PATIENT THEN ASKED ABOUT [facility] AND PATIENT STATED DOES NOT WANT TO GO WHERE THERE ARE "SEX OFFENDERS". NURSE CASE MANAGEMENT STATED THERE ARE NO BEDS AT [facility] SO THIS IS NOT AN OPTION FOR PATIENT. PATIENT IS UNHOUSED AND DOES NOT HAVE AN ID TO OBTAIN A HOTEL ROOM AND PATIENT UNSURE IF HE CAN AFFORD ONE. NURSE INSURANCE ACCOUNT ASSISTANT AWARE OF PATIENT ISSUES WITH DISCHARGE, CURRENTLY PENDING A CALL FROM SURGEON TO DISCUSS ALTERNATIVE FOR WOUND CARE DUE TO ISSUE WITH HOUSING.
--- NOTE | 2024-02-14 16:23 | NUR ---
NOLAN AND NEPHEW WOUND VAC DRESSING WAS CHANGED. AREA WAS CLEANSED WITH WOUND CLEANSER, PAT DRY, BLACK FOAM WAS PLACED IN WOUND AND COVERED WITH DRAPE. WOUND VAC COMPRESSED AND ON AT 125MM OF PRESSURE WITH NO LEAKS NOTED. WOUND SIZE 6CM X 2CM X 1 CM AND DEPT 1CM.
--- NOTE | 2024-02-14 16:34 | NUR ---
CONTACTED DR AMADOR LAINEZ NOTED HIGH BP'S. BP NOTED 160/118, 158/114. PER PROVIDER WILL ORDER BLOOD PRESSURE MEDICATION
[2024-02-14] MEDS ORDERED: AmLODIPine Besylate 5 MG Tab PO SCH (17:00)
--- NOTE | 2024-02-14 17:18 | NUR ---
NO ACUTE CHANGES THIS SHIFT. DAVY STOUT CHANGED WOUND VAC DRESSING. TREATED PAIN PER EMAR. DISCHARGE IS PENDING AT THIS TIME. PT IS WAITING ON A CALL BACK FROM SISTER, HE EXPRESSES HOPE TO STAY WITH SISTER. INDEPENDENT IN THE ROOM, CALLS APPROPRIATELY.
--- NOTE | 2024-02-14 18:37 | NUR ---
THIS NURSE CONTACTED DR MODI REGARDING BP READING OF 144/107 AND DIAPHORETIC COMPLAINING OF ANXIETY AND WANTING TO LEAVE. PENDING PROVIDERS ORDERS.
[2024-02-14] MEDS ORDERED: LORazepam 0.5 MG Tab PO PRN (18:40)
[2024-02-15 04:31] VITALS: BP 135/107
--- NOTE | 2024-02-15 04:53 | NUR ---
MASTER AUTOMOTIVE TECHNICIAN SUMMARY: PT A&OX4, ABLE TO MAKE NEEDS KNOWN. DENIES PAIN. C/O ANXIETY AT BEGINNING OF SHIFT AND MEDICATED WITH PRN ATIVAN PER ORDER IN EMAR, EFFECTIVE. NO FURTHER COMPLAINTS. WOUND VAC DRESSING INTACT. PT CONTINUES ON IV ABX, NO ADVERSE SIDE EFFECTS NOTED. VSS. NO ACUTE EVENTS THIS SHIFT. BED LOCKD IN LOWEST POSITION AND CALL LIGHT IN REACH. CARE CONTINUES ORDERED.
[2024-02-15 05:57] LABS: Hematocrit 43.1 % (37.0-53.0); Hemoglobin 14.2 g/dL (13.5-17.5); Mean Corpuscular HGB 31.7 pg (26.0-34.0); Mean Corpuscular HGB Conc 32.9 g/dL (31.5-36.5); Mean Corpuscular Volume 96 fL (80-100); Mean Platelet Volume 8.5 fL (9.1-12.4); Platelet Count 514 K/mm3 (150-400); RDW Coefficient Variation 13.2 % (11.7-14.2); RDW Standard Deviation 46.8 fL (35.1-46.3); Red Blood Cell Count 4.48 M/mm3 (4.30-5.90); White Blood Cell Count 14.18 K/mm3 (4.00-11.30)
[2024-02-15 06:18] LABS: BAND PERCENT MAN 2 % (0-8); BASOPHILS ABSOLUTE MAN 0.14 K/mm3 (0.00-0.23); BASOPHILS PERCENT MAN 1 % (0-2); EOSINOPHILS ABSOLUTE MAN 0.14 K/mm3 (0.00-0.68); EOSINOPHILS PERCENT MAN 1 % (0-6); LYMPHOCYTES ABSOLUTE MAN 1.98 K/mm3 (0.84-5.20); LYMPHOCYTES PERCENT MAN 14 % (21-46); MONOCYTES PERCENT MAN 12 % (4-13); TOTAL CELLS COUNTED 100
[2024-02-15 06:19] LABS: MYELOCYTE ABSOLUTE MAN 0.14 K/mm3 (0.00-0.00); MYELOCYTE PERCENT MAN 1 % (0-0); NEUTROPHILS ABSOLUTE MAN 10.06 K/mm3 (1.96-9.15); SEG NEUTROPHILS PERCENT MAN 69 % (41-73)
[2024-02-15 06:26] LABS: Albumin, Blood 2.7 g/dL (3.4-5.0); Albumin/Globulin Ratio 0.6 (0.8-1.8); Bilirubin, Total 0.3 mg/dL (0.1-1.0); Calcium, Blood 9.2 mg/dL (8.5-10.1); Creatinine, Blood 0.94 mg/dL (0.60-1.20); Globulin, Blood 4.4 g/dL (2.2-4.0); Potassium, Blood 4.3 mmol/L (3.5-5.5); Total Protein, Blood 7.1 g/dL (6.4-8.2)
[2024-02-15] MEDS ORDERED: LORazepam 0.5 MG Tab PO PRN ×2 (07:40→16:00)
[2024-02-15 08:11] VITALS: BP 120/90
[2024-02-15 15:37] VITALS: BP 155/113
--- NOTE | 2024-02-15 15:49 | NUR ---
CONTACTED DR ENGLISH REGARDING INCREASED BP OF 155/[address] ENGLISH WILL ORDER SOME MEDICATION TO HELP PATIENT DECREASE HIS ANXIETY. PATIENT DENIES ANY PAIN OR CHEST PAIN. JUST FEELS ANXIOUS.
[2024-02-15] MEDS ORDERED: LORazepam 0.5 MG Tab PO ONE (16:00)
--- NOTE | 2024-02-15 17:19 | NUR ---
PATIENT A/O X 4. PATEINT HAS BEEN IN BED TODAY DOES GET UP INDEPENDENTLY WITHOUT ASSITANCE TO BATHROOM. WOUND VAC ON LEFT LOWER LEG AND RUNNING AT 125MM OF PRESSURE WITH NO LEAKS INDICATED. PATIENT DID HAVE A NOTED HIGH BP AND DR ENGLISH WAS CALLED. PATIENT WAS GIVEN ATIVAN TO DECREASE PATIENT ANXIETY. PATIENT DISCHARGE IS STILL UNCLEAR DUE TO PATIENT LIVING SITUATION HOWEVER [facility] IS CURRENTLY WORKING ON DISCHARGE PLAN.
[2024-02-15 17:23] VITALS: BP 131/103
[2024-02-15 20:00] VITALS: BP 147/95
[2024-02-16 04:28] VITALS: BP 129/99
--- NOTE | 2024-02-16 04:50 | NUR ---
SHIFT SUMMARY PT ALERT ORIENTED GETS UP AD BERNARD TO THE BATHROOM OR USES HIS URINAL. C/O PAIN TO HIS LT LEG MEDICATED WITH OXY WITH GOOD PAIN RELIEF. WOUND VAC INTACT TO LT KNEE AT 125 DRAINING SEROSANGUINOUS DRAINAGE. VSS BP AT 147/95. SATTING AT 99% ON RA. REMAINS WBAT TO LT LEG. REMAINS ON ANCEF Q8HR NO ADVERSE EFFECTS NOTED TO ABT. IV INTACT TO LT AC IS SL. DISCHARGE PLANNING IS WORKING ON A SAFE DISCHARGE FOR HIM R/T HIS HOME LIFE SITUATION. RESTING IN BED AT THIS TIME WITH CALL LIGHT IN PLACE
[2024-02-16] MEDS ORDERED: HydrALAZINE HCl 20 MG / ML 1ML Vial IV PRN (06:55)
[2024-02-16 08:43] VITALS: BP 133/91
[2024-02-16 15:24] VITALS: BP 132/108
--- NOTE | 2024-02-16 15:45 | NUR ---
WOUND MEASUREMENTS THIS NURSE CHANGED THE WOUND VAC THIS SHIFT. WOUND MEASUREMENTS L:6CM, W:2.9CM, DEPTH:1CM, AND 1CM UNDERMINING.
[2024-02-16 16:38] LABS: Hematocrit 41.1 % (37.0-53.0); Hemoglobin 13.5 g/dL (13.5-17.5); Mean Corpuscular HGB 31.8 pg (26.0-34.0); Mean Corpuscular HGB Conc 32.8 g/dL (31.5-36.5); Mean Corpuscular Volume 97 fL (80-100); Mean Platelet Volume 8.3 fL (9.1-12.4); Platelet Count 476 K/mm3 (150-400); RDW Coefficient Variation 13.7 % (11.7-14.2); RDW Standard Deviation 48.5 fL (35.1-46.3); Red Blood Cell Count 4.24 M/mm3 (4.30-5.90); White Blood Cell Count 15.24 K/mm3 (4.00-11.30)
[2024-02-16 17:03] LABS: Albumin, Blood 2.7 g/dL (3.4-5.0); Albumin/Globulin Ratio 0.7 (0.8-1.8); Bilirubin, Total 0.2 mg/dL (0.1-1.0); Bun/Creatinine Ratio 24.3 (12.0-20.0); Calcium, Blood 8.6 mg/dL (8.5-10.1); Creatinine, Blood 0.95 mg/dL (0.60-1.20); Globulin, Blood 4.1 g/dL (2.2-4.0); Potassium, Blood 4.1 mmol/L (3.5-5.5); Total Protein, Blood 6.8 g/dL (6.4-8.2)
[2024-02-16 17:13] LABS: BAND PERCENT MAN 6 % (0-8); BASOPHILS ABSOLUTE MAN 0.15 K/mm3 (0.00-0.23); BASOPHILS PERCENT MAN 1 % (0-2); EOSINOPHILS PERCENT MAN 0 % (0-6); LYMPHOCYTES ABSOLUTE MAN 2.59 K/mm3 (0.84-5.20); LYMPHOCYTES PERCENT MAN 17 % (21-46); METAMYELOCYTE ABSOLUTE MAN 0.15 K/mm3 (0.00-0.00); METAMYELOCYTE PERCENT MAN 1 % (0-0); MONOCYTES PERCENT MAN 4 % (4-13); NEUTROPHILS ABSOLUTE MAN 11.73 K/mm3 (1.96-9.15); SEG NEUTROPHILS PERCENT MAN 71 % (41-73); TOTAL CELLS COUNTED 100
--- NOTE | 2024-02-16 17:53 | NUR ---
SHIFT SUMMARY PT A&OX4, VSS, AMB W/ SBA, TOLERATING PO, VOIDING, AND PAIN MANAGED PER EMAR. WOUND VAC CHANGED THIS SHIFT. SEE PREVIOUS NOTE FOR MEASUREMENTS. NO OTHER ACUTE CHANGES. CALL LIGHT WITHIN REACH AND PT ABLE TO MAKE NEEDS KNOWN.
[2024-02-16 19:25] VITALS: BP 147/88
[2024-02-16] MEDS ORDERED: Amoxicillin/Clavulanate K 875 MG Tab PO SCH (21:00)
--- NOTE | 2024-02-17 04:20 | NUR ---
SHIFT SUMMARY. PATIENT IA A&OX4. PATIENT CALLS APPROPRIATELY. PATIENT IS PLEASANT AND COOPERATIVE WITH CARE. PATIENT HAS WOUND VAC TO LEFT KNEE-DRAINING. PLAN IS FOR PATIENT TO DISCHARGE WITH WOUND CARE AND HOME HEALTH PENDING APPROVAL. BED IS LOCKED IN THE LOWEST POSITION WITH CALL LIGHT IN REACH. NO ACUTE CHANGES NOTED THIS SHIFT.
[2024-02-17 05:22] VITALS: BP 136/101
[2024-02-17 06:33] LABS: Hemoglobin 13.9 g/dL (13.5-17.5); Mean Corpuscular HGB Conc 33.1 g/dL (31.5-36.5); Mean Corpuscular Volume 97 fL (80-100); Mean Platelet Volume 8.5 fL (9.1-12.4); Platelet Count 532 K/mm3 (150-400); RDW Coefficient Variation 13.7 % (11.7-14.2); Red Blood Cell Count 4.35 M/mm3 (4.30-5.90); White Blood Cell Count 15.26 K/mm3 (4.00-11.30)
[2024-02-17 06:58] LABS: BASOPHILS PERCENT MAN 0 % (0-2); EOSINOPHILS PERCENT MAN 0 % (0-6); LYMPHOCYTES ABSOLUTE MAN 2.44 K/mm3 (0.84-5.20); LYMPHOCYTES PERCENT MAN 16 % (21-46); METAMYELOCYTE ABSOLUTE MAN 0.15 K/mm3 (0.00-0.00); METAMYELOCYTE PERCENT MAN 1 % (0-0); MONOCYTES ABSOLUTE MAN 1.22 K/mm3 (0.16-1.47); MONOCYTES PERCENT MAN 8 % (4-13); MYELOCYTE ABSOLUTE MAN 0.45 K/mm3 (0.00-0.00); MYELOCYTE PERCENT MAN 3 % (0-0); NEUTROPHILS ABSOLUTE MAN 10.98 K/mm3 (1.96-9.15); SEG NEUTROPHILS PERCENT MAN 72 % (41-73); TOTAL CELLS COUNTED 100
[2024-02-17 07:16] VITALS: BP 113/87
[2024-02-17 07:27] LABS: Albumin, Blood 2.9 g/dL (3.4-5.0); Albumin/Globulin Ratio 0.7 (0.8-1.8); Bilirubin, Total 0.2 mg/dL (0.1-1.0); Bun/Creatinine Ratio 22.5 (12.0-20.0); Calcium, Blood 9.3 mg/dL (8.5-10.1); Creatinine, Blood 1.02 mg/dL (0.60-1.20); Globulin, Blood 4.1 g/dL (2.2-4.0); Potassium, Blood 4.2 mmol/L (3.5-5.5)
[2024-02-17] MEDS ORDERED: CeFAZolin Sodium 2,000 MG in NS 100 ML IV SCH (08:00)
[2024-02-17 15:48] VITALS: BP 127/91
--- NOTE | 2024-02-17 17:38 | NUR ---
SHIFT SUMMARY PT C/O PAIN X1 THAT WAS MEDICATED PER THE EMAR. NO ACUTE CHANGES. CALL LIGHT WITHIN REACH AND PT ABLE TO MAKE NEEDS KNOWN.
[2024-02-17 19:52] VITALS: BP 126/90
[2024-02-18 03:47] VITALS: BP 120/86
[2024-02-18 05:43] LABS: Hemoglobin 13.9 g/dL (13.5-17.5); Mean Corpuscular HGB 32.3 pg (26.0-34.0); Mean Corpuscular HGB Conc 33.9 g/dL (31.5-36.5); Mean Corpuscular Volume 95 fL (80-100); RDW Coefficient Variation 13.9 % (11.7-14.2); RDW Standard Deviation 48.4 fL (35.1-46.3); Red Blood Cell Count 4.31 M/mm3 (4.30-5.90)
[2024-02-18 05:50] LABS: Mean Platelet Volume 8.9 fL (9.1-12.4); Platelet Count 488 K/mm3 (150-400)
--- NOTE | 2024-02-18 05:52 | NUR ---
SHIFT SUMMARY. PATIENT IS A&OX4. PATIENT ABLE TO MAKE HIS NEEDS KNOWN AND CALLS APPROPRIATELY. PATIENT UP AMBULATING IN THE HALLWAY THIS SHIFT WITH FWW. PATIENT TOLERATED WELL. NO ACUTE CHANGED NOTED OVER NIGHT. BED IS LOCKED IN THE LOWEST POSITION WITH CALL LIGHT IN REACH.
[2024-02-18 05:56] LABS: Alanine Aminotransfer (ALT/SGP 86 U/L (12-78); Albumin, Blood 2.8 g/dL (3.4-5.0); Albumin/Globulin Ratio 0.7 (0.8-1.8); Alk Phos 105 U/L (50-136); Anion Gap 11 mmol/L (3-11); Aspartate Aminotrans (AST/SGOT 71 U/L (12-37); Bilirubin, Total <0.1 mg/dL (0.1-1.0); Blood Urea Nitrogen 26 mg/dL (8-24); Bun/Creatinine Ratio 32.3 (12.0-20.0); CO2, Blood 24 mmol/L (21-32); Calcium, Blood 8.4 mg/dL (8.5-10.1); Chloride, Blood 113 mmol/L (98-108); Creatinine, Blood 0.81 mg/dL (0.60-1.20); Globulin, Blood 3.8 g/dL (2.2-4.0); Glomerular Filtration Rate 114 (60-); Glucose, Blood 96 mg/dL (70-99); Potassium, Blood 4.6 mmol/L (3.5-5.5); Sodium, Blood 143 mmol/L (136-145); Total Protein, Blood 6.6 g/dL (6.4-8.2)
[2024-02-18 07:03] VITALS: BP 140/101
[2024-02-18 07:39] VITALS: BP 130/97
[2024-02-18 08:30] LABS: BASOPHILS PERCENT MAN 0 % (0-2); EOSINOPHILS ABSOLUTE MAN 0.32 K/mm3 (0.00-0.68); EOSINOPHILS PERCENT MAN 2 % (0-6); LYMPHOCYTES ABSOLUTE MAN 4.23 K/mm3 (0.84-5.20); LYMPHOCYTES PERCENT MAN 26 % (21-46); METAMYELOCYTE ABSOLUTE MAN 0.16 K/mm3 (0.00-0.00); METAMYELOCYTE PERCENT MAN 1 % (0-0); MONOCYTES ABSOLUTE MAN 1.63 K/mm3 (0.16-1.47); MONOCYTES PERCENT MAN 10 % (4-13); MYELOCYTE ABSOLUTE MAN 0.32 K/mm3 (0.00-0.00); MYELOCYTE PERCENT MAN 2 % (0-0); NEUTROPHILS ABSOLUTE MAN 9.61 K/mm3 (1.96-9.15); SEG NEUTROPHILS PERCENT MAN 59 % (41-73); TOTAL CELLS COUNTED 100
--- NOTE | 2024-02-18 08:41 | NUR ---
CONT PULSE OX DC'D- MD ORDER STATES FOR WHILE PT IS ON IV NARCOTICS. PT NO LONGER ON IV NARCOTICS. ORDER DC'D PER MD WRITTEN INSTRUCTIONS.
[2024-02-18] MEDS ORDERED: Acetaminophen325 M1 PO (15:21)
[2024-02-18] MEDS ORDERED: AMLO5 PO (15:22)
[2024-02-18] MEDS ORDERED: CEPH500 PO (15:22)
[2024-02-18] MEDS ORDERED: VISBIOME 112.51 EACH PO (15:22)
[2024-02-18 15:38] VITALS: BP 149/98
--- NOTE | 2024-02-18 17:12 | NUR ---
DISCHARGE NOTE- THIS RN WAS NOT PRESENT AT THE TIME THE PT RIDE ARRIVED. PT WAS ESCORTED OUT TO THE [facility] VIA WC. NO DISCHARGE INSTRUCTIONS WERE PROVIDED TO THE PT BY NURSING STAFF PRIOR TO DISCHARGE; HOWEVER THE PT WAS EDUCATED ABOUT THE WOUND VAC BY NURSING STAFF PRIOR TO DISCHARGE WELL THE PHARMACY HIS MEDS WERE BEING SENT TO. THE MED LIST WAS NOT PROVIDED TO THE PT PRIOR TO DISCHARGE HE WAS RUSHED BY HIS EARLY [facility]. PT IV WAS DC'D PRIOR TO DC BY THE INFORMATICA ARCHITECT.
--- NOTE | 2024-02-18 17:15 | NUR ---
WOUND VAC DRESSING CHANGE DONE IN TRANSFERRING TO HOME [employer] VAC. EDUCATION PROVDIED ON LOW BATTERY AND LEAK ALARMS AND TROUBLE SHOOTING WELL WET TO DRY INSTRUCTIONS IN CASE OF FAILED VAC UNIT USING CLEAN TECHNIQE, AND PHONE NUMBER TO CALL FOR TROUBLESHOOTING SUPPORT. SUPPLIES FOR WET TO DRY INCLUDING GLOVES AND HAND CONTINUUM OF CARE MANAGER GIVEN TO PATIENT AND ALL HOME VAC SUPPLIES.
== END 2024-02-18 17:11 | disposition home health service (06) | DRG 854 ==
LOC: ER 19:40 → MEDS 02-10 04:32 → ERHOLD 02-10 04:32 → MEDS 02-10 05:30 → ENPENDDIS 02-18 15:03 → MEDS 02-18 17:11
PROVIDERS: Family Medicine; Orthopaedic Surgery; Student in an Organized Health Care Education/Training Program; ADMIT Student in an Organized Health Care Education/Training Program
PROC: 3E03329 Introduction of Other Anti-infective into Peripheral Vein, Percutaneous Approach (ICD-10-PCS; 2024-02-10)
PROC: 0MBP0ZZ Excision of Left Knee Bursa and Ligament, Open Approach (ICD-10-PCS; principal; 2024-02-10 17:30)
PROC: 0MDP0ZZ Extraction of Left Knee Bursa and Ligament, Open Approach (ICD-10-PCS; 2024-02-12)
DX: A40.0 Sepsis due to streptococcus, group A (principal); L02.416 Cutaneous abscess of left lower limb; L03.116 Cellulitis of left lower limb; Z59.00 Homelessness unspecified; R65.20 Severe sepsis without septic shock; M71.562 Other bursitis, not elsewhere classified, left knee; I10 Essential (primary) hypertension; F17.220 Nicotine dependence, chewing tobacco, uncomplicated; F17.290 Nicotine dependence, other tobacco product, uncomplicated; F10.20 Alcohol dependence, uncomplicated; F15.10 Other stimulant abuse, uncomplicated; F12.10 Cannabis abuse, uncomplicated; D64.9 Anemia, unspecified; Z88.0 Allergy status to penicillin; Z88.8 Allergy status to other drugs, medicaments and biological substances
CPT/HCPCS: 36415; 73701; 80053; 80202; 80320; 83605; 83735; 84443; 85025; 85651; 86140; 87040; 87070; 87075; 87077; 87147; 87186; 87205; 87389; 94760; 94762; 96361; 96365-59; 96375-59; 97110; 97112; 97116; 97161; 97530; 99284-25; A9270; J0360; J0690; J0692; J1100; J1171; J1650; J1885; J2250; J2405; J2704; J3010; J3370; J3480; J7030; J7040; J7050; J7120; Q9967